=== PATIENT | female | born 1960 | race Caucasian/White ===

== ENCOUNTER 2018-04-24 00:54 | Observation (INO) ==
[2018-04-24] MEDS ORDERED: Sod Chloride 0.9% Inj 1,000 ML IV.SIG ONE (01:23)
[2018-04-24] MEDS ORDERED: Morphine Inj 4 MG/ML Vial IV.PUSH ONE (01:23)
--- NOTE | 2018-04-24 01:29 | ED ---
HPI General Chief Complaint: Abdominal Pain Stated Complaint: vomiting / abd pain /fever Time Seen by Provider: 04/24/18 01:23 Source: patient Mode of arrival: ambulatory Limitations: no limitations History of Present Illness HPI narrative: Patient states that she started having the night started originally in the epigastrium area and then seemed to migrate more towards the periumbilical region. Associated with nausea and vomiting, stated that her last meal was at 5 PM and stated that she probably threw most of it up. States that she is not on any medications has no past surgical history no allergies and only past medical history is shingles. complaint: abdominal pain Onset (ago): day(s) Pain Consistency: constant Location: epigastric Severity: moderate Severity scale (1-10): 5 Quality: cramping Radiation: none Migration to: LLQ, RLQ and suprapubic Relieving factors: nothing Exacerbating factors: nothing Associated symptoms: nausea and vomiting Related Data Patient : No Home Medications Medication Instructions Recorded Confirmed aspirin 325 mg PO DAILY PRN 04/24/18 04/24/18 Allergies Allergy/AdvReac Type Severity Reaction Status Date / Time No Known Allergies Allergy Unverified 04/24/18 01:08 Review of Systems Except as stated in HPI: all other systems reviewed are negative PMFSH History History Provided By: Patient Surgical History Surgical History No history of previous surgery (Acute) Social History Social History Substance History: No History of Abuse Second Hand Smoke Exposure: No Smoking Status: Current every day smoker Tobacco Type: Cigarettes How Often Do You Have a Drink Containing Alcohol: Never Recent Travel in [facility] within the Last 8 Weeks: No Recent Out of Country Travel within the Last 8 Weeks: No Immunization History Tetanus Immunization: Unsure Hx Influenza Vaccine This Season: No Exam Narrative Exam Narrative: GENERAL: Well-nourished, well-developed patient in no apparent distress. SKIN: Warm and dry. HEAD: Atraumatic. Normocephalic. EYES: Pupils equal and round. No scleral icterus. No injection or drainage. ENT: No nasal bleeding or discharge. Mucous membranes pink and moist. NECK: Trachea midline. No JVD. CARDIOVASCULAR: Regular rate and rhythm. no rubs or gallops RESPIRATORY: No accessory muscle use. Clear to auscultation. Breath sounds equal bilaterally. GASTROINTESTINAL: Abdomen soft, mild tender to percussion over left lower quadrant, suprapubic and right lower quadrant non-tender, No rebound or guarding MUSCULOSKELETAL: Extremities without clubbing, cyanosis, or edema. No obvious deformities. NEUROLOGICAL: Awake and alert. No obvious cranial nerve deficits. Motor grossly within normal limits. Five out of 5 muscle strength in the arms and legs. Normal speech. PSYCHIATRIC: Appropriate mood and affect; insight and judgment normal. Course Initial Documented Vital Signs Temperature 99.3 F 04/24/18 01:01 Pulse Rate 129 H 04/24/18 01:01 Respiratory Rate 18 04/24/18 01:01 Blood Pressure 140/73 04/24/18 01:01 Pulse Oximetry 94 L 04/24/18 01:01 Last Documented Vital Signs Temperature 99.3 F 04/24/18 01:01 Pulse Rate 100 H 04/24/18 01:53 Respiratory Rate 18 04/24/18 01:01 Blood Pressure 125/68 04/24/18 01:53 Pulse Oximetry 95 04/24/18 01:53 Medical Decision Making MDM Narrative Medical decision making narrative: Dr. Guillen, general surgeon was made aware of findings including CAT scan and the patient is being kept n.p.o., on IV fluids, Zosyn and Flagyl Differential Diagnosis Differential Diagnosis: Colitis versus diverticulitis versus appendicitis Medical Records Medical records reviewed: Yes I reviewed the patient's medical records. Lab Data Lab results reviewed: Yes I reviewed the patient's lab results. Lab results narrative: Noted leukocytosis with neutrophilia UA consistent with poor specimen collection Normal liver kidney pancreas functions Result diagrams: 04/24/18 01:15 04/24/18 01:15 Lab Results 04/24/18 04/24/18 04/24/18 Range/Units 01:15 01:15 01:15 CBC w Diff Auto diff final WBC 23.0 H (4.0-11.0) th/mm3 RBC 4.46 (4.00-5.30) mil/mm3 Hgb 14.3 (11.6-15.3) gm/dL Hct 41.5 (35.0-46.0) % MCV 93.0 (80.0-100.0) fL MCH 32.0 (27.0-34.0) pg MCHC 34.4 (32.0-36.0) % RDW 11.9 (11.6-17.2) % Plt Count 446 (150-450) th/mm3 MPV 7.7 (7.0-11.0) fL Neut % (Auto) 86.3 H (16.0-70.0) % Lymph % (Auto) 7.3 L (9.0-44.0) % [place] % (Auto) 6.1 (0.0-8.0) % Eos % (Auto) 0.2 (0.0-4.0) % Baso % (Auto) 0.1 (0.0-2.0) % Neut # (Auto) 19.9 H (1.8-7.7) th/mm3 Lymph # (Auto) 1.7 (1.0-4.8) th/mm3 [place] # (Auto) 1.4 H (0.0-0.9) th/mm3 Eos # (Auto) 0.0 (0.0-0.4) th/mm3 Baso # (Auto) 0.0 (0.0-0.2) th/mm3 WBC Differential . Differential Comment . Sodium 136 (136-145) meq/L Potassium 3.8 (3.5-5.1) meq/L Chloride 102 (98-107) meq/L Carbon Dioxide 26.4 (21.0-32.0) meq/L Anion Gap 8 (5-15) meq/L BUN 12 (7-18) mg/dL Creatinine 0.86 (0.50-1.00) mg/dL Estimated GFR 69 L (>89) mL/min Random Glucose 132 H (74-106) mg/dL Calcium 9.1 (8.5-10.1) mg/dL Total Bilirubin 0.5 (0.2-1.0) mg/dL AST 14 L (15-37) U/L ALT 34 (10-53) U/L Alkaline Phosphatase 81 (45-117) U/L Total Protein 8.2 (6.4-8.2) g/dL Albumin 3.8 (3.4-5.0) g/dL Lipase 93 (73-393) U/L Urine Color Yellow (Yellw/Straw) Urine Clarity Slightly cloudy (Clear) Urine pH 6.0 (5.0-8.5) Ur Specific [place] 1.025 (1.002-1.035) Urine Protein 30 H (Neg-Trace) mg/dL Urine Glucose (UA) Negative (Negative) mg/dL Urine Ketones Trace H (Negative) mg/dL Urine Occult Blood Large H (Negative) Urine Nitrate Negative (Negative) Urine Bilirubin Negative (Negative) Urine Urobilinogen 0.2 (Less than 2) mg/dL Ur Leukocyte Esterase Trace H (Negative) Urine RBC 15-50 H (0-3) /hpf Urine WBC 0-5 (0-5) /hpf Ur Squamous Epith Cells Greater than 10 H (0-5) /hpf Urine Bacteria Occasional H (None) /hpf Micro UA Comment Culture not ind Urine Culture Comments Culture not ind Imaging Data My impression: Noted report from radiologist of acute appendicitis without any complications such as perforation or abscess formation. Radiologist's impression: Abdomen/Pelvis CT 04/24/18 01:23 CONCLUSION: 1. Patient's symptoms appear to be due to an acute, uncomplicated appendicitis. 2. Diffuse hepatic fatty infiltration. Discharge Plan Discharge Disposition Patient Disposition: 30 Still Patient Discharge Condition Condition: Stable Discharge Details Diagnosis: Acute appendicitis Physicians Team ED Provider: Cory Espinoza Primary Care Provider: Ciro Lu Rxs /Orders / Referrals /Forms Prescriptions: No Action aspirin 325 mg Tablet 325 mg PO DAILY PRN (Reason: Headache) RF: 0 Status ED Status: With Doctor
[2018-04-24] MEDS ORDERED: Sod Chloride 0.9% Inj 1,000 ML IV.CONT SCH (01:30)
[2018-04-24 01:45] LABS: Clarity,Urine Slightly Cloudy (Clear); Color,Urine Yellow (Yellw/Straw); Glucose,Urine (UA) Negative (Negative); Leukocyte Esterase,Urine Trace (Negative); Nitrite,Urine Negative (Negative); Specific Gravity,Urine 1.025 (1.002-1.035); Urobilinogen,Urine 0.2 mg/dL (Less than 2)
[2018-04-24 01:51] LABS: Bilirubin,Urine Negative (Negative)
[2018-04-24 01:53] LABS: Bacteria,Urine Occasional /hpf; Squamous Epithelial Cell,Urine Greater than 10 /hpf (0-5); WBC,Urine 0-5 /hpf (0-5)
[2018-04-24 01:54] LABS: Chloride 102 meq/L (98-107); Potassium 3.8 meq/L (3.5-5.1); Sodium 136 meq/L (136-145)
[2018-04-24 01:55] LABS: Baso % (Auto) 0.1 % (0.0-2.0); Eos % (Auto) 0.2 % (0.0-4.0); Hematocrit 41.5 % (35.0-46.0); Hemoglobin 14.3 gm/dL (11.6-15.3); Lymph # (Auto) 1.7 th/mm3 (1.0-4.8); Lymph % (Auto) 7.3 % (9.0-44.0); Mean Corpuscular HGB Conc 34.4 % (32.0-36.0); Mean Platelet Volume 7.7 fL (7.0-11.0); Mono # (Auto) 1.4 th/mm3 (0.0-0.9); Mono % (Auto) 6.1 % (0.0-8.0); Neut # (Auto) 19.9 th/mm3 (1.8-7.7); Neut % (Auto) 86.3 % (16.0-70.0); Platelet Count 446 th/mm3 (150-450); Red Blood Count 4.46 mil/mm3 (4.00-5.30); Red Cell Distribution Width 11.9 % (11.6-17.2)
[2018-04-24 01:57] LABS: Calcium 9.1 mg/dL (8.5-10.1)
[2018-04-24 01:58] LABS: Albumin 3.8 g/dL (3.4-5.0); Anion Gap 8 meq/L (5-15); Blood Urea Nitrogen 12 mg/dL (7-18); Carbon Dioxide 26.4 meq/L (21.0-32.0); Glucose,Random 132 mg/dL (74-106); Lipase 93 U/L (73-393)
[2018-04-24 02:01] LABS: Alanine Aminotransferase 34 U/L (10-53); Aspartate Aminotransferase 14 U/L (15-37); Glomerular Filtration Rate 69 mL/min (>89)
[2018-04-24 02:02] LABS: Total Protein 8.2 g/dL (6.4-8.2)
--- NOTE | 2018-04-24 02:03 | CT ---
EXAM DATE: 04/24/2018 1:48 AM EDT AGE/SEX: 57 years / Female INDICATIONS: Right lower quadrant pain. Nausea. Vomiting. CLINICAL DATA: This is the patient's initial encounter. Patient reports that signs and symptoms have been present for 1 day and indicates a pain score of 5/10. MEDICAL/SURGICAL HISTORY: None. None. RADIATION DOSE: 14.75 CTDI (mGy) COMPARISON: No prior exams available for comparison. TECHNIQUE: Multiple contiguous axial images were obtained through the abdomen. Images were obtained using multiple row detector helical technique. Using automated exposure control and adjustment of the mA and/or kV according to patient size, radiation dose was kept as low as reasonably achievable to o btain optimal diagnostic quality images. DICOM format image data is available electronically for rev iew and comparison. FINDINGS: Lower Lungs: The visualized lower lungs are clear. Liver: Diffusely diminished attenuation characteristic of fatty infiltration. No focal mass lesion or intrahepatic biliary duct dilatation Spleen: Homogeneous density without enlargement. Pancreas: Unremarkable without mass or calcification. Kidneys: Normal in size and shape. No evidence of mass or hydronephrosis. Adrenal Glands: Unremarkable. Aorta: The aorta and proximal iliac vessels are grossly unremarkable without aneurysmal dilation. Bowel/Mesentery: The bowel loops are grossly unremarkable. The cecum and sigmoid colon have a normal configuration. Abnormal thickening of the appendix up to 9 mm with periappendiceal stranding are rosi racteristic of an acute, uncomplicated appendicitis. Abdominal Wall: Intact. Retroperitoneum: No evidence of adenopathy in the retrocrural, para-aortic, or deep pelvic regions. Bladder: Contours are smooth. Reproductive Organs: No abnormal masses or calcifications seen. Inguinal: The inguinal region is unremarkable without evidence of adenopathy. Bony Structures: Unremarkable. CONCLUSION: 1. Patient's symptoms appear to be due to an acute, uncomplicated appendicitis. 2. Diffuse hepatic fatty infiltration. Electronically signed by: Ron Trujillo MD 04/24/2018 2:01 AM EDT
[2018-04-24 02:04] LABS: Alkaline Phosphatase 81 U/L (45-117)
[2018-04-24] MEDS ORDERED: Piperacil/Tazo 3.375 GM Premix 50 ML IV.SIG ONE (02:16)
[2018-04-24] MEDS ORDERED: Morphine Inj 4 MG/ML Vial IV.PUSH PRN (02:33)
[2018-04-24] MEDS: Piperacil/Tazo 3.375 GM Premix 50 ML IV.SIG SCH ×5 (07:49→20:17)
[2018-04-24] MEDS ORDERED: Chlorhexidine Gluconate 2% 1 Pack (2 Cloths) TOPICAL SCH (12:45)
[2018-04-24] MEDS ORDERED: Metoprolol Tartrate 25 MG Tablet PO SCH (12:45)
[2018-04-24] MEDS ORDERED: Sodium Chlor 0.9% Inj 500 ML IV.SIG SCH (13:00)
[2018-04-24] MEDS ORDERED: fentaNYL Citrate Inj 250 MCG/5 ML Ampul ONE (13:05)
--- NOTE | 2018-04-24 13:17 | P.HPGS ---
History of Present Illness Service: General Surgery Primary Care Physician: Ciro Lu MD Chief Complaint: Abdominal pain History of Present Illness: 57 yo F developed lower abdominal pain radiating superiorly two days ago and presented to the ED early this am. She had multiple episodes of nausea and vomiting yesterday. She was noted to have a WBC of 23,[address] a/p revealing acute appendicitis. She denies any previous surgeries. - Diagnosis (1) Acute appendicitis (2) Umbilical hernia Review of Systems All other systems reviewed negative except as stated [facility] - History History Provided By: Patient - Surgical History Surgical History: Surgical History (Last Reviewed 04/24/18 @ 01:25 by Cory Espinoza) No history of previous surgery - Tobacco History Second Hand Smoke Exposure: No Tobacco Use In Past 30 Days: Yes Smoking Status: Current every day smoker Tobacco Type: Cigarettes - Alcohol History How Often Do You Have a Drink Containing Alcohol: Never - Substance Use History Substance History: No History of Abuse - Travel History Recent Travel in the [place] Within the Last 8 Weeks: No Recent Travel Out of the Country Within the Last 8 Weeks: No - Immunization History Tetanus Immunization: Unsure Hx Influenza Vaccine This Season: No Medications and Allergies Active Medications: Active Medications Chlorhexidine Gluconate (Chlorhexidine 2% Cloth) 3 pack TOPICAL [facility] Stop: 04/27/18 12:42 Piperacillin/Tazobactam/Dextrose (Zosyn 3.375 Gm Premix) 50 mls @ 100 mls/hr IV.SIG Q6H [facility] Last Infusion: 04/24/18 08:23 Dose: Infused Sodium Chloride (Ns Inj) 500 mls @ 30 mls/hr IV.SIG .Q10H [facility] Stop: 04/27/18 12:42 Lactated Ringer's (Lr 1000 Ml Inj) 1,000 mls @ 30 mls/hr IV.SIG .Q24H [facility] Stop: 04/27/18 12:42 Metoprolol Tartrate (Lopressor) 25 mg PO [facility] Stop: 04/27/18 12:42 Morphine Sulfate (Morphine Inj) 2 mg IV.PUSH Q4H PRN PRN Reason: Pain 1-10 Povidone Iodine (Betadine 5% Antisepsis Kit) 1 applicatio EACH NARE [facility] Stop: 04/27/18 12:42 Sodium Chloride (Ns Flush) 2 ml IV.FLUSH PRN PRN PRN Reason: FLUSH AFTER USING IV ACCESS Allergies Allergy/AdvReac Type Severity Reaction Status Date / Time No Known Allergies Allergy Unverified 04/24/18 01:08 Home Medications Medication Instructions Recorded Confirmed Type aspirin 325 mg PO DAILY PRN 04/24/18 04/24/18 History Exam Vital signs: Vital Signs 04/24/18 01:01 04/24/18 01:53 04/24/18 02:25 Temperature 99.3 F 98.6 F Pulse Rate 129 H 100 H 90 Respiratory Rate 18 16 Blood Pressure 140/73 125/68 105/66 Pulse Oximetry 94 L 95 04/24/18 02:27 04/24/18 03:25 04/24/18 04:00 Temperature 97.6 F Pulse Rate 86 87 Respiratory Rate 16 20 Blood Pressure 102/63 109/59 L Pulse Oximetry 96 95 95 04/24/18 08:00 04/24/18 12:28 Temperature 98.9 F 100.2 F H Pulse Rate 94 H 102 H Respiratory Rate 16 20 Blood Pressure 103/66 121/73 Pulse Oximetry 97 94 L Intake & Output 04/23/18 04/24/18 04/24/18 18:59 06:59 18:59 Intake Total 1150 / 1150 1050 / 1050 Output Total Balance 1125 / 1125 1050 / 1050 Weight 87.7 kg Intake: IV 1150 / 1150 1050 / 1050 NS Inj 1,000 ML @ 125 mls/hr IV 1000 / 1000 .CONT .Q8H [facility] Rx#:[id number] Zosyn 3.375 GM Premix 50 ML @ 50 / 50 50 / 50 100 mls/hr IV.SIG Q6H [facility] Rx#: [id number] NS Inj 1,000 ML @ Wide Open IV. 1000 / 1000 SIG BOLUS ONE Rx#:[id number] Flagyl 500 MG Inj 100 ML @ 100 100 / 100 mls/hr IV.SIG ONCE ONE Rx#: [id number] Output: Urine 25 / 25 - Constitutional no acute distress, obese - Routine HEENT Exam Head: Present: normocephalic, atraumatic Eye: Present: EOMI, PERRL ENT: Present: mucous membranes moist - Routine Neck Exam Present: supple, full ROM - Routine Respiratory Exam Absent: accessory muscle use, respiratory distress - Routine Cardiovascular Exam Present: RRR - Routine Abdominal Exam Present: soft, tenderness (RLQ moderate ttp no guarding mild rebound), hernia ( small umbilical with incarcerated preperitoneal fat) - Routine Extremities Exam Absent: cyanosis, clubbing, edema - Routine Skin Exam Present: intact. Absent: cyanosis - Routine Neurological Exam Present: alert, oriented X3 Results - Results CT scan - abdomen: report reviewed, image reviewed CT scan - pelvis: report reviewed, image reviewed Caprini VTE Risk Assessment Caprini VTE Risk Assessment: No/Low Risk (score <= 1) Caprini Risk Assessment Model: Point Value = 1 Point Value = 2 Point Value = 3 Point Value = 5 Age 41-60 Minor surgery BMI > 25 kg/m2 Swollen legs Varicose veins or History of unexplained or recurrent spontaneous Oral contraceptives or hormone replacement Sepsis (< 1 month) Serious lung disease, including pneumonia (< 1 month) Abnormal pulmonary function Acute myocardial infarction Congestive heart failure (< 1 month) History of inflammatory bowel disease Medical patient at bed rest Age 61-74 Arthroscopic surgery Major open surgery (> 45 min) Laparoscopic surgery (> 45 min) Malignancy Confined to bed (> 72 hours) Immobilizing plaster cast Central venous access Age >= 75 History of VTE Family history of VTE Factor V Leiden Prothrombin [id number] Lupus anticoagulant Anticardiolipin antibodies Elevated serum homocysteine Heparin-induced thrombocytopenia Other congenital or acquired thrombophilia Stroke (< 1 month) Elective arthroplasty Hip, pelvis, or leg fracture Acute spinal cord injury (< 1 month) Prophylaxis Regimen: Total Risk Factor Score Risk Level Prophylaxis Regimen 0-1 Low Early ambulation 2 Moderate Order ONE of the following: *Sequential Compression Device (SCD) *Heparin 5000 units SQ BID 3-4 Higher Order ONE of the following medications: *Heparin 5000 units SQ TID *Enoxaparin/Lovenox 40 mg SQ daily (WT < 150 kg, CrCl > 30 mL/min) *Enoxaparin/Lovenox 30 mg SQ daily (WT < 150 kg, CrCl > 10-29 mL/min) *Enoxaparin/Lovenox 30 mg SQ BID (WT < 150 kg, CrCl > 30 mL/min) AND/OR *Sequential Compression Device (SCD) 5 or more Highest Order ONE of the following medications: *Heparin 5000 units SQ TID (Preferred with Epidurals) *Enoxaparin/Lovenox 40 mg SQ daily (WT < 150 kg, CrCl > 30 mL/min) *Enoxaparin/Lovenox 30 mg SQ daily (WT < 150 kg, CrCl > 10-29 mL/min) *Enoxaparin/Lovenox 30 mg SQ BID (WT < 150 kg, CrCl > 30 mL/min) AND *Sequential Compression Device (SCD) Assessment and Plan - Assessment (1) Acute appendicitis Code(s): K35.80 - Unspecified acute appendicitis Status: Acute Qualifiers: Acute appendicitis type: unspecified acute appendicitis type Qualified Code (s): K35.80 - Unspecified acute appendicitis Plan: Recommend to proceed to OR for laparoscopic appendectomy. Will plan primary repair of small umbilical hernia as well. Discussed details and risks of procedure with the patient and her and she desires to proceed. (2) Umbilical hernia Code(s): K42.9 - Umbilical hernia without obstruction or gangrene Status: Acute
[2018-04-24] MEDS ORDERED: Bupivacaine/Epinephrine PF Inj 0.5% 30 ML Vial ONE (13:23)
--- NOTE | 2018-04-24 14:27 | P.OP ---
- Preoperative Diagnosis (1) Acute appendicitis (2) Umbilical hernia - Postoperative Diagnosis (1) Appendicitis with abscess (2) Umbilical hernia Date of procedure: 04/24/18 Procedure: Laparoscopic appendectomy with drainage of periappendiceal abscess Primary umbilical hernia repair Anesthesia: GETA Surgeon: Ethan Guillen MD Estimated blood loss (mL): 10 Pathology: other (appendix) Operation and Findings: EBL: 5 cc Complications: None apparent Operative findings: Mid and distal portion of the appendix are inflamed the appendix is adherent to the pelvic sidewall with small associated abscess. 1 cm umbilical hernia with incarcerated preperitoneal fat closed primarily. Procedure in detail: The patient was taken to the operating room placed in the supine position with left arm tucked. General endotracheal anesthesia was induced and the abdomen was prepped and draped in usual sterile fashion. Surgical timeout was performed to verify correct patient procedure and site. Perioperative antibiotics were administered as necessary. Local anesthetic was injected in the skin and subcutaneous tissue superior to the umbilicus and a curvilinear supraumbilical incision was made. Dissection was carried out circumferentially around the umbilical stalk. The umbilical dermis was from underlying hernia sac and the hernia sac was entered. There was incarcerated preperitoneal fat present and this was placed back into the abdominal cavity. The fascial defect was approximately 1 cm. The peritoneum was bluntly entered using a hemostat. Next the 10 mm GelPort was placed into the abdominal cavity which was then insufflated to 15 mmHg with CO2 gas which the patient tolerated well. The patient was then placed in Trendelenburg position and turned slightly to the left. A 5 mm mm port was placed under laparoscopic visualization in the suprapubic area and another 5 mm port in the left midabdomen. Attention was turned to the right lower quadrant. The appendix was not inflamed at its base. However the mid and distal portion were diving down under small bowel and adherent to the pelvic sidewall. When removed from the pelvic sidewall there was a small abscess present and this was drained with the suction bevel gear generator operator taking care not to spread purulent fluid throughout the abdomen.. The mesoappendix was taken down with the Harmonic scalpel. Two #1 PDS Endoloops were placed at the base the appendix and the appendix transected with Harmonic scalpel. It was then removed using an Endo Catch bag. The appendiceal stump was intact with no leakage. The right lower quadrant especially at the site of the drained abscess was copiously irrigated. The pelvis was irrigated. There was no generalized purulent fluid. The abdomen was then allowed to desufflate. Attention was turned to repair of the umbilical hernia. Fat surrounding the 1 cm defect was dissected free from the fascia to delineate the fascial edges. Multiple simple interrupted 0 Ethibond sutures were then placed to close the defect transversely. The umbilical dermis was attached to underlying fascia with 3-0 Vicryl sutures. Skin closed with subcuticular Monocryl as well as Steri-Strips. The patient tolerated the procedure well was extubated and taken to PACU in stable condition.
[2018-04-24] MEDS: Ketorolac Inj 30 MG/ML (IVP) Vial IV.PUSH SCH ×2 (17:07→23:53)
--- NOTE | 2018-04-24 18:28 | ECG ---
Date Performed: 04/24/2018 Time Performed: 11:21:23 PTAGE: 57 years EKG: Sinus rhythm NONSPECIFIC T-WAVE ABNORMALITY BORDERLINE ECG NO PREVIOUS TRACING DOCTOR: Jessica Miranda Interpretating Date/Time 04/24/2018 18:27:06
[2018-04-24 20:59] VITALS: RESP 20
[2018-04-25] MEDS: Piperacil/Tazo 3.375 GM Premix 50 ML IV.SIG SCH ×2 (02:36→10:00)
[2018-04-25] MEDS: Ketorolac Inj 30 MG/ML (IVP) Vial IV.PUSH SCH (06:14)
--- NOTE | 2018-04-25 10:45 | P.DS ---
Date of admission: 04/24/18 02:36 Primary care physician: Ciro Lu MD Brief History from admission: 57 yo F developed lower abdominal pain radiating superiorly two days ago and presented to the ED early this am. She had multiple episodes of nausea and vomiting yesterday. She was noted to have a WBC of 23,[address] a/p revealing acute appendicitis. She denies any previous surgeries. DS: Diagnosis - Discharge Diagnosis (1) Umbilical hernia Status: Acute (2) Appendicitis with abscess Status: Acute DS: Medications - Discharge Medications Prescriptions: ciprofloxacin HCl 500 mg PO Q12H #10 tab ketorolac 10 mg PO Q6H PRN #20 tab PRN Reason: Acute Pain metronidazole 500 mg PO TID #15 tab DS: Summary Hospital Course: Underwent lap appendectomy and drainage of abscess as well as primary umbilical hernia repair. Post op course uncomplicated. She is tolerating diet and pain is well controlled. - Time Spent with Patient Total time spent providing and/or coordinating discharge services: Exam Vital signs: Vital Signs 04/24/18 12:28 04/24/18 14:40 04/24/18 14:50 Temperature 100.2 F H 98.9 F Pulse Rate 102 H 99 H 100 H Respiratory Rate 20 14 14 Blood Pressure 121/73 90/55 L Pulse Oximetry 94 L 89 L 90 L 04/24/18 14:57 04/24/18 15:04 04/24/18 15:13 Temperature Pulse Rate 95 H 103 H Respiratory Rate 14 14 Blood Pressure 84/56 L 105/63 Pulse Oximetry 93 L 92 L 94 L 04/24/18 15:34 04/24/18 17:14 04/24/18 20:00 Temperature 98.2 F 98.4 F 96.5 F L Pulse Rate 87 77 89 Respiratory Rate 14 17 20 Blood Pressure 92/61 L 105/62 103/66 Pulse Oximetry 97 97 04/25/18 00:00 04/25/18 04:00 04/25/18 08:09 Temperature 97.7 F 96.3 F L 97.3 F L Pulse Rate 80 84 74 Respiratory Rate 20 20 Blood Pressure 105/58 L 113/65 117/62 Pulse Oximetry 92 L 96 95 Intake & Output 04/24/18 04/25/18 04/25/18 18:59 06:59 18:59 Intake Total 2100 / 2100 820 / 820 240 / 240 Balance 2099 820 / 820 240 / 240 Weight 92.7 kg Intake: IV 2099 100 / 100 NS Inj 1,000 ML @ 125 mls/hr IV 1000 / 1000 .CONT .Q8H [facility] Rx#:[id number] LR 1000 mL Inj 1,000 ML @ 30 1000 / 1000 mls/hr IV.SIG .Q24H [facility] Rx#: [id number] Zosyn 3.375 GM Premix 50 ML @ 100 / 100 100 / 100 100 mls/hr IV.SIG Q6H [facility] Rx#: [id number] Oral 720 / 720 240 / 240 Other: # Voids 4 Date of Last Bowel Movement 04/24/18 04/24/18 Narrative: NAD Abd soft mild post op ttp, inc c/d/i Results Procedures completed during hospitalization: Lap appendectomy UHR Pending studies at discharge: Pending at discharge 04/24/18 07:30 Surgical [PTH] Routine - Impressions ITS Impressions Abdomen/Pelvis CT 04/24/18 01:23 CONCLUSION: 1. Patient's symptoms appear to be due to an acute, uncomplicated appendicitis. 2. Diffuse hepatic fatty infiltration. Discharge Plan - Discharge Disposition Patient Disposition: Discharge Home - Discharge Condition Condition: Stable - Discharge Order Discharge Orders: Discharge Order (Routine); Ordered 04/25/18 Ordered By: Ethan Guillen - Physicians Team Primary Care Provider: Ciro Lu Attending Provider: Ethan Guillen
[2018-04-25] MEDS ORDERED: Ketorolac Inj 30 MG/ML (IVP) Vial IV.PUSH ONE (12:00)
[2018-04-25] MEDS ORDERED: Neostigmine Inj 5 MG/5 ML Syringe IV.PUSH ONE (12:00)
[2018-04-25] MEDS ORDERED: Succinylcholine Inj 200 MG/10 ML Vial IV.PUSH ONE (12:00)
[2018-04-25 13:04] VITALS: BP 112/68; PULSE 76; TEMP 97.6; O2SAT 96
== END 2018-04-25 14:48 | disposition home or self-care (01) ==
LOC: PH3 00:54 → PHEDA 00:54 → PHED 00:54 → PH3 03:55
PROVIDERS: ADMIT Surgery; ATTEND Surgery
PROC: LAPAPPY (ICD-10-PCS; 2018-04-24 13:16)